=== PATIENT | female | born 1970 | race Caucasian/White ===

== ENCOUNTER 2016-11-30 01:49 | Emergency (ER) | payer OTHER ==
[~2016-11-30] VITALS: Ht 162.6 cm; Wt 90.7 kg
[2016-11-30 02:00] VITALS: BP 142/84
[2016-11-30] MEDS ORDERED: PENICILLIN V K 250 MG TABLET. PO STA (02:09)
[2016-11-30] MEDS ORDERED: HYDROcodone/APAP 10/325 1 TAB TABLET PO ONE (02:15)
[2016-11-30] MEDS ORDERED: HYDR-971 PO (02:16)
[2016-11-30] MEDS ORDERED: PENI500T PO (02:16)
--- NOTE | 2016-11-30 02:16 | PHYS DOC ---
Past History Past Medical History: Migraines Past Surgical History: No Surgical History Alcohol Use: Rarely Drug Use: None Adult General Chief Complaint Chief Complaint: DENTAL PROBLEM HPI HPI Patient is a 46 year old female who presents with complaint of dental pain. Patient states that she started having throbbing to the left lower aspect of her mouth approximately 1 week ago. Patient states she started getting worsening pain over the past few days. Patient started to notice swelling and severe throbbing to the left lower jaw earlier this evening. Patient states that her pain also became "excruciating." Patient rates pain as 7 out of 10. Patient states that she is working on getting a dental appointment later today, however the pain became so severe she came to the emergency department to help with pain control. Patient has had associated swelling to her jaw. Patient has been taking Tylenol with no relief in symptoms. Patient has had no nausea or vomiting associated with her symptoms. Review of Systems Review of Systems Constitutional: Denies fever or chills [] Eyes: Denies change in visual acuity, redness, or eye pain [] HENT: Dental pain, facial swelling[] Respiratory: Denies cough or shortness of breath [] Cardiovascular: No additional information not addressed in HPI [] GI: Denies abdominal pain, nausea, vomiting, bloody stools or diarrhea [] : Denies dysuria or hematuria [] Musculoskeletal: Denies back pain or joint pain [] Integument: Denies rash or skin lesions [] Neurologic: Denies headache, focal weakness or sensory changes [] Allergies Allergies Allergies Coded Allergies Type Severity Reaction Last Updated Verified No Known Drug Allergies 11/30/16 No Physical Exam Physical Exam Constitutional: Alert, mildly elevated temperature, appears in moderate discomfort. [] HENT: Normocephalic, atraumatic, bilateral external ears normal, moderate left mandibular swelling along anterolateral aspect, tenderness to palpation at base of tooth #22, no fluctuance, no oral exudates, nose normal. [] Eyes: PERRLA, EOMI, conjunctiva normal, no discharge. [] Neck: Normal range of motion, no tenderness, supple, no stridor. [] s. [] Skin: Warm, dry, no erythema, no rash. [] Extremities: No tenderness, no cyanosis, no clubbing, ROM intact, no edema. [] Neurologic: Alert and oriented X 3, normal motor function, normal sensory function, no focal deficits noted. [] Current Patient Data Vital Signs Vital Signs Date Time Temp Pulse Resp B/P (MAP) Pulse Ox O2 Delivery O2 Flow Rate FiO2 11/30/16 02:00 99.7 60 20 97 Room Air Lab Results None performed EKG EKG Not performed[] Radiology/Procedures Radiology/Procedures Not performed[] Course & Med Decision Making Course & Med Decision Making Pertinent Labs and Imaging studies reviewed. (See chart for details) Patient was started on penicillin VK and hydrocodone in the emergency department. Patient given prescriptions for penicillin and hydrocodone for continued outpatient treatment. Advised patient to call her dentist later today to set up an appointment in the next 1-2 days for reevaluation. Advised return emergency department for any worsening symptoms. Patient was understanding and in agreement with treatment plan.[] Dragon Disclaimer Dragon Disclaimer This chart was dictated in whole or in part using Voice Recognition software in a busy, high-work load, and often noisy Emergency Department environment. It may contain unintended and wholly unrecognized errors or omissions. Departure Departure: Impression: Primary Impression: Dental abscess Disposition: 01 HOME, SELF-CARE Condition: STABLE Referrals: PAULO BERGERON DO (PCP) Patient Instructions: Dental Abscess Additional Instructions: Call your dentist later today for an appointment in the next 1-2 days. Return to the emergency department for any worsening symptoms. Scripts Hydrocodone Bit/Acetaminophen (NORCO 5-325 TABLET) 1 Each Tablet 1-2 TAB PO Q4-6HRS Y for PAIN, #20 TAB Prov: VICKY TORRES MD 11/30/16 Penicillin V Potassium (PENICILLIN V POTASSIUM) 500 Mg Tablet 1 TAB PO QID, #40 TAB Prov: VICKY TORRES MD 11/30/16 VICKY TORRES MD Nov 30, 2016 02:16
[2016-11-30] MEDS ORDERED: PENICILLIN V K 250 MG TABLET. ONE (02:20)
[2016-11-30] MEDS ORDERED: HYDROcodone/APAP 10/325 1 TAB TABLET ONE (02:21)
== END 2016-11-30 02:25 | disposition home or self-care (01) ==
LOC: ER 01:49
DX: K04.7 Periapical abscess without sinus (principal); G43.909 Migraine, unspecified, not intractable, without status migrainosus
CPT/HCPCS: 99283

== ENCOUNTER 2019-01-13 11:56 | Emergency (ER) | payer OTHER ==
[~2019-01-13] VITALS: Ht 162.6 cm; Wt 90.7 kg
[~2019-01-13 11:56] MED LIST: HYDR-3165 PO; PENI500T PO
[2019-01-13] MEDS ORDERED: IBUP600T16 PO (12:45)
[2019-01-13 12:51] VITALS: BP 116/72
--- NOTE | 2019-01-13 13:25 | PHYS DOC ---
Past History Past Medical History: Migraines Past Surgical History: No Surgical History Alcohol Use: Occasionally Drug Use: None Adult General Chief Complaint Chief Complaint: ELBOW PROBLEM HPI HPI Patient is a 48-year-old female presenting with chief, right elbow pain. She apparently has had pain for a few months now she just cannot get to see her primary doctor the weight is 2 long she has intermittent pain when she tries to lift something lateral aspect of the right elbow no trauma no fever no redness Allergies Allergies Allergies Coded Allergies Type Severity Reaction Last Updated Verified No Known Drug Allergies 11/30/16 No Physical Exam Physical Exam Constitutional: Well developed, well nourished, no acute distress, non-toxic appearance. [] HENT: Normocephalic, atraumatic, bilateral external ears normal, oropharynx moist, no oral exudates, nose normal. [] Eyes: PERRLA, EOMI, conjunctiva normal, no discharge. [] Neck: Normal range of motion, no tenderness, supple, no stridor. [] Skin: Warm, dry, no erythema, no rash. [] Back: No tenderness, no CVA tenderness. [] Extremities: Mild tenderness lateral aspect of the right elbow reproducible when extending against resistance. Distal pulse and function are intact Neurologic: Alert and oriented X 3, normal motor function, normal sensory function, no focal deficits noted. [] Psychologic: Affect normal, judgement normal, mood normal. [] Current Patient Data Vital Signs Vital Signs Date Time Temp Pulse Resp B/P (MAP) Pulse Ox O2 Delivery O2 Flow Rate FiO2 01/13/19 12:51 83 18 116/72 (87) 98 Room Air 01/13/19 12:10 98.0 Lab Results Temperature (Fahrenheit): * 98.0 degrees F (97.6-99.5) Patient Temperature * 98.0 degrees F (97.5-99.5) Temperature Source * Oral Blood Pressure Systolic * 112 mm Hg (100-140) Blood Pressure Diastolic * 71 mm Hg (60-100) Blood Pressure Mean * 85 mm Hg Pulse Rate * 94 beats per minute (60-90) H Pulse Assessment Method * Monitor Respiratory Rate * 18 breaths per minute (12-24) Oxygen Delivery Method * Room Air Bedside Pulse Oximetry * 97 % Treatment Prior to Arrival * Yes - pain reliever 2 days ago with no improvement noted by pt Complaint of Pain * No EKG EKG [] Radiology/Procedures Radiology/Procedures [] Course & Med Decision Making Course & Med Decision Making Pertinent Labs and Imaging studies reviewed. (See chart for details) []Probably mild elbow tendinitis subacute onset a few months ago recommended Scooter wrap ice and NSAIDs gave precautions to take with food only for a week and follow-up with primary doctor for further evaluation Dragon Disclaimer Dragon Disclaimer This electronic medical record was generated, in whole or in part, using a voice recognition dictation system. Departure Departure: Impression: Primary Impression: Elbow pain Disposition: HOME, SELF-CARE Condition: STABLE Patient Instructions: Elbow Exercises, Generic-SportsMed Scripts Ibuprofen (IBUPROFEN) 600 Mg Tablet 600 MG PO Q6HRS PRN for PAIN, #30 TAB Prov: JARVIS MANCIA MD 01/13/19 JARVIS MANCIA MD Jan 13, 2019 13:25
== END 2019-01-13 12:51 | disposition home or self-care (01) ==
LOC: ER 11:56
DX: M25.521 Pain in right elbow (principal); G43.909 Migraine, unspecified, not intractable, without status migrainosus
CPT/HCPCS: 99282

== ENCOUNTER 2019-12-01 09:11 | Emergency (ER) | payer OTHER ==
[~2019-12-01] VITALS: Ht 162.6 cm; Wt 90.9 kg
[~2019-12-01 09:11] MED LIST changes: +IBUP600T16 PO
[2019-12-01 09:27] VITALS: BP 151/111
--- NOTE | 2019-12-01 09:44 | PHYS DOC ---
Past History Past Medical History: Migraines Past Surgical History: No Surgical History Alcohol Use: Occasionally Drug Use: None General Adult EDM: Chief Complaint: HEADACHE HPI: HPI: 49-year-old female presents with headache. Started 7 PM last night. The symptoms are the same as her usual migraines. She has a pressure sensation above her right eye. She rates it a 7 out of 10. She was going to take Excedrin this morning but when she took them she felt like she was going to throw up so she spit them back out. She continues to be nauseated but has not vomited. She denies fever or chills. She has no other symptoms at this time. Review of Systems: Review of Systems: Constitutional: Denies fever or chills Eyes: Denies change in visual acuity HENT: Denies nasal congestion or sore throat Respiratory: Denies cough or shortness of breath Cardiovascular: Denies chest pain or edema GI: Nausea. Denies abdominal pain, vomiting, bloody stools or diarrhea : Denies dysuria Musculoskeletal: Denies back pain or joint pain Integument: Denies rash Neurologic: Headache. Denies focal weakness or sensory changes Endocrine: Denies polyuria or polydipsia Lymphatic: Denies swollen glands Psychiatric: Denies depression or anxiety Heart Score: Risk Factors: Risk Factors: DM, Current or recent (<one month) smoker, HTN, HLP, family history of CAD, obesity. Risk Scores: Score 0 - 3: 2.5% MACE over next 6 weeks - Discharge Home Score 4 - 6: 20.3% MACE over next 6 weeks - Admit for Clinical Observation Score 7 - 10: 72.7% MACE over next 6 weeks - Early Invasive Strategies Current Medications: Current Meds: Current Medications Medications (Trade) Dose Ordered Sig/Tiffany Start Time Stop Time Status Last Admin Dose Admin Diphenhydramine HCl (Benadryl) 25 mg 1X ONCE 12/01/19 09:45 12/01/19 09:46 UNV Ketorolac Tromethamine (Toradol 30mg Vial) 30 mg 1X ONCE 12/01/19 09:45 12/01/19 09:46 UNV Metoclopramide HCl (Reglan Vial) 10 mg 1X ONCE 12/01/19 09:45 12/01/19 09:46 UNV Sodium Chloride 1,000 ml @ 1,000 mls/hr 1X ONCE 12/01/19 09:45 12/01/19 10:44 UNV Allergies: Allergies: Allergies Coded Allergies Type Severity Reaction Last Updated Verified No Known Drug Allergies 11/30/16 No Physical Exam: PE: Constitutional: Well developed, well nourished, mild distress, non-toxic appearance. [] HENT: Normocephalic, atraumatic, bilateral external ears normal, oropharynx moist, no oral exudates, nose normal. [] Eyes: PERRLA, EOMI, conjunctiva normal, no discharge. Photophobia. [] Neck: Normal range of motion, no tenderness, supple, no stridor. [] Cardiovascular: Heart rate normal, regular rhythm, no murmur [] Lungs & Thorax: Bilateral breath sounds clear to auscultation [] Abdomen: Bowel sounds normal, soft, no tenderness, no masses, no pulsatile masses. [] Skin: Warm, dry, no erythema, no rash. [] Back: No tenderness, no CVA tenderness. [] Extremities: No tenderness, no cyanosis, no clubbing, ROM intact, no edema. [] Neurologic: Alert and oriented X 3, normal motor function, normal sensory function, no focal deficits noted. [] Psychologic: Affect normal, judgement normal, mood normal. [] Current Patient Data: Vital Signs: Vital Signs Date Time Temp Pulse Resp B/P (MAP) Pulse Ox O2 Delivery O2 Flow Rate FiO2 12/01/19 09:27 98.0 82 18 151/111 (124) 100 EKG: EKG: [] Radiology/Procedures: Radiology/Procedures: [] Course & Med Decision Making: Course & Med Decision Making Pertinent Labs and Imaging studies reviewed. (See chart for details) I have ordered the patient a liter normal saline, 25 mg of Benadryl, 10 mg Re glan, 30 mg of Toradol. Her labs are unremarkable. She is feeling better at this time. She is stable for discharge. [] Dragon Disclaimer: Pete Disclaimer: This electronic medical record was generated, in whole or in part, using a voice recognition dictation system. Departure Departure: Impression: Primary Impression: Migraine headache Qualified Codes: G43.109 - Migraine with aura, not intractable, without status migrainosus Disposition: 01 DC HOME SELF CARE/HOMELESS Condition: IMPROVED Referrals: PAULO BERGERON DO (PCP) Patient Instructions: Migraine Headache, [id number] MUNIR MENDOZA DO Dec 01, 2019 09:44
[2019-12-01] MEDS ORDERED: KETOROLAC 30 MG/ML VIAL. IVP ONE (09:45)
[2019-12-01] MEDS ORDERED: diphenhydrAMINE 50 MG/ML VIAL IVP ONE (09:45)
[2019-12-01] MEDS ORDERED: METOCLOPRAMIDE HCL 10 MG/2 ML VIAL. IVP ONE (09:45)
[2019-12-01] MEDS ORDERED: IV NORMAL SALINE 1,000ML 1,000 ML IV ONE (09:45)
[2019-12-01 10:26] LABS: BASO # 0.1 x10^3/uL (0.0-0.2); BASO % 1 % (0-3); EOS # 0.3 x10^3/uL (0.0-0.7); EOS % 5 % (0-3); HEMATOCRIT 42.6 % (36.0-47.0); HEMOGLOBIN 13.9 g/dL (12.0-15.5); LYMPH # 1.8 x10^3/uL (1.0-4.8); LYMPH % 27 % (24-48); MEAN CORPUSCULAR HEMOGLOBIN 29 pg (25-35); MEAN CORPUSCULAR HGB CONC 33 g/dL (31-37); MEAN CORPUSCULAR VOLUME 91 fL (79-100); MONO # 0.5 x10^3/uL (0.0-1.1); MONO % 7 % (0-9); NEUT % 60 % (31-73); PLATELET COUNT 315 x10^3/uL (140-400); RED BLOOD COUNT 4.71 x10^6/uL (3.50-5.40); RED CELL DISTRIBUTION WIDTH 13.8 % (11.5-14.5); WHITE BLOOD COUNT 6.7 x10^3/uL (4.0-11.0)
[2019-12-01 10:27] LABS: CALCIUM 9.3 mg/dL (8.5-10.1); CREATININE 0.9 mg/dL (0.6-1.0); GFR 66.5; POTASSIUM 4.1 mmol/L (3.5-5.1)
[2019-12-01 10:33] LABS: ALBUMIN 3.6 g/dL (3.4-5.0); TOTAL BILIRUBIN 0.6 mg/dL (0.2-1.0); TOTAL PROTEIN 7.2 g/dL (6.4-8.2)
== END 2019-12-01 12:03 | disposition home or self-care (01) ==
LOC: ER 09:11
DX: G43.109 Migraine with aura, not intractable, without status migrainosus (principal)
CPT/HCPCS: 36415; 80053; 85025; 96361; 96374; 96375; 99284; J1200; J1885; J2765; J7030